=== PATIENT | female | born 1960 | race Caucasian/White ===

== ENCOUNTER → 2017-05-02 10:06 | Outpatient (CLI) | payer OTHER ==
[2017-05-02 11:23] LABS: BASOPHILS 0.3 % (0-2); EOSINOPHILS 1.9 % (0-7); HEMATOCRIT 39.9 % (36.0-48.0); HEMOGLOBIN 13.8 g/dL (12-16); LYMPHOCYTES 30.7 % (15-50); MCH 36.3 pg (26.0-34.0); MCHC 34.6 g/dL (31.0-37.0); MEAN PLATELET VOLUME 10.7 fL (7.4-10.4); MONOCYTES 10.6 % (2-11); NEUTROPHILS 56.5 % (40-80); PLATELET COUNT 192 10x3/uL (130-400); RDW 12.4 % (11.5-14.5); WBC 6.2 10x3/uL (4.8-10.8)
[2017-05-02 11:44] LABS: ALBUMIN 4.3 g/dL (3.4-5.0); ALKALINE PHOSPHATASE 38 U/L (46-116); ALT (SGPT) 28 U/L (10-68); BILIRUBIN - TOTAL 0.41 mg/dL (0.2-1.3); CALC OSMOLALITY 272 mosm/kg (275-300); CALCIUM 8.8 mg/dL (8.5-10.1); CARBON DIOXIDE 28.8 mmol/L (21.0-32.0); CHLORIDE - SERUM 102 mmol/L (98-107); CHOL - HDL RATIO 1.5 ratio (2.3-4.1); CHOLESTEROL, TOTAL 203 mg/dL (0-200); CREATININE - SERUM 0.7 mg/dL (0.6-1.3); GLUCOSE 89 mg/dL (74-106); HDL CHOLESTEROL 134 mg/dL (32-96); LDL CHOLESTEROL 63 mg/dL (0-100); LDL-HDL RATIO 0.5 ratio (1.5-3.5); POTASSIUM - SERUM 3.8 mmol/L (3.5-5.1); SODIUM 138 mmol/L (136-145); THYROID STIMULATING HORMONE 1.22 uIU/mL (0.36-3.74); TRIGLYCERIDE 34 mg/dL (30-200); UREA NITROGEN 8 mg/dL (7-18); eGFR NON AFRICAN AMERICAN > 90 mL/min (90-120)
== END | disposition home or self-care (01) ==
LOC: D.LAB 10:06
PROVIDERS: Family Medicine
DX: Z00.01 Encounter for general adult medical examination with abnormal findings (principal); M79.7 Fibromyalgia; E55.9 Vitamin D deficiency, unspecified

== ENCOUNTER → 2018-05-14 13:39 | Outpatient (CLI) | payer OTHER ==
[2018-05-14 14:19] LABS: BASOPHILS 0.5 % (0-2); EOSINOPHILS 1.2 % (0-7); HEMATOCRIT 41.2 % (36.0-48.0); HEMOGLOBIN 14.7 g/dL (12-16); LYMPHOCYTES 32.6 % (15-50); MCH 37.1 pg (26.0-34.0); MCHC 35.7 g/dL (31.0-37.0); MEAN PLATELET VOLUME 10.5 fL (7.4-10.4); MONOCYTES 10.2 % (2-11); NEUTROPHILS 55.5 % (40-80); PLATELET COUNT 183 10x3/uL (130-400); RBC 3.96 10x6/uL (4.00-5.40); WBC 7.3 10x3/uL (4.8-10.8)
[2018-05-14 14:43] LABS: ALBUMIN 4.2 g/dL (3.4-5.0); ALKALINE PHOSPHATASE 34 U/L (46-116); ALT (SGPT) 31 U/L (10-68); BILIRUBIN - TOTAL 0.54 mg/dL (0.2-1.3); CALC OSMOLALITY 275 mosm/kg (275-300); CALCIUM 9.1 mg/dL (8.5-10.1); CARBON DIOXIDE 28.4 mmol/L (21.0-32.0); CHLORIDE - SERUM 101 mmol/L (98-107); CHOL - HDL RATIO 1.8 ratio (2.3-4.1); CHOLESTEROL, TOTAL 201 mg/dL (0-200); CREATININE - SERUM 0.6 mg/dL (0.6-1.3); GLUCOSE 93 mg/dL (74-106); HDL CHOLESTEROL 114 mg/dL (32-96); LDL CHOLESTEROL 74 mg/dL (0-100); LDL-HDL RATIO 0.6 ratio (1.5-3.5); POTASSIUM - SERUM 3.9 mmol/L (3.5-5.1); PROTEIN - SERUM 7.5 g/dL (6.4-8.2); SODIUM 139 mmol/L (136-145); THYROID STIMULATING HORMONE 1.71 uIU/mL (0.36-3.74); TRIGLYCERIDE 69 mg/dL (30-200); UREA NITROGEN 8 mg/dL (7-18); eGFR NON AFRICAN AMERICAN > 90 mL/min (90-120)
== END | disposition home or self-care (01) ==
LOC: D.LAB 05-10 09:15
PROVIDERS: Family Medicine
DX: Z00.01 Encounter for general adult medical examination with abnormal findings (principal); M79.7 Fibromyalgia; E55.9 Vitamin D deficiency, unspecified; J30.9 Allergic rhinitis, unspecified

== ENCOUNTER → 2018-06-04 17:00 | Outpatient (CLI) | payer OTHER | END | disposition home or self-care (01) | LOC: D.MAMMO 16:00 | DX: Z12.31 Encounter for screening mammogram for malignant neoplasm of breast (principal) ==